=== PATIENT | female | born 1935 | race Asian ===

== ENCOUNTER → 2020-06-26 | Outpatient (CLI) | payer OTHER ==
[~2020-06-26] MED LIST: PRAVACHOL40 MG PO
== END ==
LOC: LAB 11:55
PROVIDERS: ATTEND Ophthalmology
DX: Z01.812 Encounter for preprocedural laboratory examination (principal); Z20.828 Contact with and (suspected) exposure to other viral communicable diseases

== ENCOUNTER 2020-06-29 07:15 | Day surgery (SDC) | payer OTHER ==
[~2020-06-29] VITALS: Ht 129.5 cm; Wt 48.5 kg
--- NOTE | ~2020-06-29 | O ---
[facility] [place] [address] OPERATIVE REPORT Name: ALTA PRESSLEY Room #: 150-6 [facility]..#: [id number] Admission: 06/29/20 Attend Phys: Gregorio Vallejo MD Discharge: Date of : 33 Report #: [id number] THIS REPORT FOR: cc: Caridad Bautista MS, Valerie MS MSN FNPC White, William L. MD ~ CC: Catrachita Vallejo DATE OF SERVICE: 06/29/2020 TILE EDGER: None. PREOPERATIVE DIAGNOSIS: Unilateral left lower lid entropion. POSTOPERATIVE DIAGNOSIS: Unilateral left lower lid entropion. OPERATION PERFORMED: Unilateral left lower lid entropion repair. ANESTHESIA: Local with IV sedation. COMPLICATIONS: None. INDICATIONS FOR PROCEDURE: This patient has unilateral lower lid entropion with chronic irritation and discharge. The current procedure is being undertaken in order to improve the patient's level of comfort and visual function. Informed consent was obtained to include but not limited to the loss of vision, bleeding, infection, scarring, failure to improve the problem and need for further surgery. DESCRIPTION OF OPERATION: The patient was taken to the operating room, where 2% Xylocaine with epinephrine mixed with equal parts of 0.75% Marcaine with Wydase was administered transcutaneously and transconjunctivally to the lower lid and lateral canthal area. The patient was then prepped and draped in the usual sterile fashion. A Natalee clamp was used to clamp the lateral canthus, following which a sharp canthotomy and cantholysis were performed. Hemostasis was achieved with a monopolar cautery, as it was throughout the case. A tarsal strip was prepared laterally, removing the lash-bearing portion of the redundant lid margin and the redundant tarsal plate. A transconjunctival dissection was then undertaken just inferior to the lower border of the tarsal plate. The lower lid retractors were disinserted from the inferior border of the tarsal plate. The lower lid retractors were then advanced and reattached to the anterior surface of the tarsal plate with mattress 5-0 chromic sutures passed [address] [address] OPERATIVE REPORT Name: [facility] Room #: 150-6 [facility].#: [id number] Admission: 06/29/20 Attend Phys: Gregorio Vallejo MD Discharge: Date of : 33 Report #: [id number] transconjunctivally and secured in the infraciliary margin. The tarsal strip was then secured laterally with 2 interrupted 5-0 Prolene sutures. The subcutaneous structures and the skin were then closed with multiple interrupted 6-0 plain gut sutures so the lateral canthal angle was sharply reformed. The wound was then cleaned and dressed with ophthalmic antibiotic ointment. The patient was then transported to the recovery area having tolerated the procedure well with no anesthetic or operative complications being noted. By: 1020 1042 Gregorio Vallejo MD /deven
--- NOTE | ~2020-06-29 | O ---
[facility] [address] OPERATIVE REPORT Name: ALTA PRESSLEY Room #: 150-6 [facility]..#: [id number] Admission: 06/29/20 Attend Phys: Gregorio Vallejo MD Discharge: Date of : 33 Report #: [id number] THIS REPORT FOR: cc: Caridad Bautista MS, Valerie MS MSN FNPC White,Gregorio Kc MD ~ CC: Caridad Bautista TEAM PHYSICIAN Gregorio Vallejo DATE OF SERVICE: 06/29/2020 QUALITY ASSOCIATE: None. PREOPERATIVE DIAGNOSIS: Unilateral right lower lid ectropion. POSTOPERATIVE DIAGNOSIS: Unilateral right lower lid ectropion. OPERATION PERFORMED: Unilateral right lower lid ectropion repair. ANESTHESIA: Local with IV sedation. COMPLICATIONS: None. 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 The current procedure is undertaken in order to improve the patient's visual function, lacrimal outflow and level of comfort. Informed consent was obtained to include but not limited to the risk of loss of vision, bleeding, infection, scarring, failure to improve the problem and need for further surgery. DESCRIPTION OF OPERATION: The patient was taken to the operating room, where 2% Xylocaine with epinephrine mixed with equal parts of 0.75% Marcaine with Wydase was administered transcutaneously and transconjunctivally to the lower lid and lateral canthal area. The patient was then prepped and draped in the usual sterile fashion. A Natalee clamp was then used to clamp the lateral canthus, following which a sharp canthotomy and cantholysis were performed. The tarsal strip was prepared laterally, removing the lash-bearing portion of the redundant lid margin and the redundant tarsal plate. Hemostasis was achieved with a monopolar cautery, as it was throughout the case. The tarsal strip was then secured to the internal portion of the lateral orbital tubercle with 2 interrupted 5-0 Prolene sutures. The lateral canthal angle was sharply reformed as the subcutaneous structures and the skin were closed with multiple [facility] [address] [place] [address] OPERATIVE REPORT Name: [facility] Room #: 150-6 [facility]#: [id number] Admission: 06/29/20 Attend Phys: Gregorio Vallejo MD Discharge: Date of : 33 Report #: [id number] interrupted 6-0 plain gut sutures. The wound was cleaned and dressed with ophthalmic antibiotic ointment. The patient was then transported to the recovery area, having tolerated the procedure well with no anesthetic or operative complications being noted. By: 1021 1050 Gregorio Vallejo MD /nt
[2020-06-29 08:30] VITALS: BP 127/72
== END 2020-06-29 11:10 | disposition home or self-care (01) ==
LOC: OR 07:15 → TBA 07:15 → OR 08:31
PROVIDERS: ATTEND Ophthalmology
DX: H02.132 Senile ectropion of right lower eyelid (principal); H02.0 Entropion and trichiasis of eyelid; M81.0 Age-related osteoporosis without current pathological fracture; E78.00 Pure hypercholesterolemia, unspecified; Z78.9 Other specified health status; Z79.899 Other long term (current) drug therapy; Z98.890 Other specified postprocedural states; Z88.8 Allergy status to other drugs, medicaments and biological substances
CPT/HCPCS: 50010; 50101; 50386; 50398; 51636; 56527; 56531; 62110; 62850; 70005